=== PATIENT | male | born 1965 | race Caucasian/White ===

== ENCOUNTER → 2021-01-17 | Outpatient (CLI) | payer OTHER ==
[2021-01-17 15:06] LABS: HEMOGLOBIN 14.6 gm/dl (14.0-17.5); RED BLOOD COUNT 4.35 M/UL (4.20-5.50); WHITE BLOOD COUNT 4.6 K/UL (4.5-11.0)
[2021-01-17 15:28] LABS: BUN/CREATININE RATIO 16 (0-10)
== END ==
LOC: LAB 14:16
PROVIDERS: Registered Nurse Administrator
DX: F20.3 Undifferentiated schizophrenia (principal); Z79.899 Other long term (current) drug therapy
CPT/HCPCS: 36415; 80053; 80061; 80076; 83036; 85025